=== PATIENT | female | born 1980 | race Caucasian/White ===

== ENCOUNTER 2017-04-05 10:13 | Emergency (ER) | payer SELFPAY ==
[~2017-04-05] VITALS: Ht 154.9 cm; Wt 47.8 kg
[~2017-04-05 10:13] MED LIST: ACET325T14 PO; DIAZ5TAB4 PO; DOCU-30 PO; IBUP-1222 PO
[2017-04-05] MEDS ORDERED: DIAZ5TAB4 PO (12:00)
[2017-04-05 12:53] VITALS: BP 98/53
== END 2017-04-05 12:57 | disposition home or self-care (01) ==
LOC: ED 11:53
DX: N93.8 Other specified abnormal uterine and vaginal bleeding (principal); F17.210 Nicotine dependence, cigarettes, uncomplicated
CPT/HCPCS: 36415; 76830; 81003; 84703; 85025; 99285

== ENCOUNTER 2018-12-31 14:28 | Emergency (ER) | payer MEDICAID ==
[~2018-12-31] VITALS: Ht 154.9 cm; Wt 53.0 kg
[~2018-12-31 14:28] MED LIST changes: +DOCU-131 PO; -DOCU-30 PO
[2018-12-31 15:17] LABS: BASOPHILS # (AUTO) 0.03 x10^3/uL (0-0.1); BASOPHILS % (AUTO) 1 % (0-1); EOSINOPHILS # (AUTO) 0.03 x10^3/uL (0-0.4); EOSINOPHILS % (AUTO) 1 % (1-7); LYMPHOCYTES # (AUTO) 1.72 x10^3/uL (1-3.4); LYMPHOCYTES % (AUTO) 36 % (22-44); MD NO; MEAN CORPUSCULAR HEMOGLOBIN 22.7 pg (27.0-34.8); MEAN CORPUSCULAR HGB CONC 30.9 g/dL (32.4-35.8); MEAN CORPUSCULAR VOLUME 73.4 fL (80-100); MEAN PLATELET VOLUME 7.8 fL (7.4-10.4); MONOCYTES # (AUTO) 0.22 x10^3/uL (0.2-0.8); MONOCYTES % (AUTO) 5 % (2-9); NEUTROPHILS # (AUTO) 2.72 x10^3/uL (1.8-6.8); NEUTROPHILS % (AUTO) 58 % (42-75); PLATELET COUNT 374 x10^3/uL (130-400); RED BLOOD COUNT 4.76 x10^6/uL (3.82-5.3); RED CELL DISTRIBUTION WIDTH 17.6 % (9.6-15.2)
[2018-12-31 15:27] LABS: ALBUMIN 3.7 g/dL (3.4-5.0); ANION GAP 5 mmol/L (5-15); CALCIUM 8.4 mg/dL (8.5-10.1); CHLORIDE 105 mmol/L (98-107); CREATININE 0.76 mg/dL (0.55-1.02)
--- NOTE | 2018-12-31 17:49 | NUR ---
TO ROOM FROM LOBBY. NAD.
--- NOTE | 2018-12-31 18:11 | NUR ---
FIRST CONTACT WITH PT. THIS RN IN TO ROOM. PT SITTING ON CHAIR. THIS RN ASKED "ARE YOU THE PATIENT?" PT STATES "YES. AND I'M NOT PUTTING THAT ON UNTIL I TALK TO A DOCTOR!" PT POINTED TO DHRUV SHE STATED THAT.
--- NOTE | 2018-12-31 18:15 | NUR ---
PT ARRIVED TO ROOM, PLACED ON MONITOR. PT REFUSING TO GET INTO GOWN OR IV STATING "I KNOW MY RIGHTS, EVERYONE HAS BEEN RUDE TODAY I'M NOT DOING ANYTHING UNTIL I GET MY RESULTS FROM MY DOCTOR. I CAN LEAVE AND DANIEL YOU FOR MALPLRACTICE BECAUS NOBODY HAS SEEN ME TODAY". RN ASKED PT FOR VITAL SIGNS AND PT AGREED, PT PLACED ON MONITOR. PT TEARFUL.
[2018-12-31] MEDS ORDERED: DIAZEPAM 5 MG TABLET ONE (18:56)
[2018-12-31] MEDS ORDERED: DIAZEPAM 5 MG TABLET PO ONE (19:00)
--- NOTE | 2018-12-31 20:06 | NUR ---
PT IS IN US NOW
--- NOTE | 2018-12-31 20:11 | NUR ---
PT CAME BACK FROM US
--- NOTE | 2018-12-31 20:32 | NUR ---
DR KNOWLES AT BED SIDE GIVEN THE RESULT OF SONO PT UNDERSTOOD PT WILL BE DC'D
--- NOTE | 2018-12-31 21:13 | NUR ---
GIVEN DC INSTRUCTION WITH PRESCRIPTION AND FOLLOW UP [employer] PT UNDERSTOOD PT UP AMBUALTED TO CHECK OUT WITH FAMILY
[2018-12-31 21:14] VITALS: BP 121/77
== END 2018-12-31 21:16 | disposition home or self-care (01) ==
LOC: ED 18:51
DX: N83.201 Unspecified ovarian cyst, right side (principal); D50.9 Iron deficiency anemia, unspecified; N92.0 Excessive and frequent menstruation with regular cycle; E87.6 Hypokalemia
CPT/HCPCS: 36415; 76830; 80048; 82040; 84703; 85025; 99284

== ENCOUNTER 2021-02-25 14:51 | Emergency (ER) | payer MEDICAID ==
[~2021-02-25] VITALS: Ht 154.9 cm; Wt 60.0 kg
[2021-02-25] MEDS ORDERED: SODIUM CHLORIDE 0.9% 1,000ML IVBOLUS ONE (15:00)
[2021-02-25] MEDS ORDERED: SODIUM CHLORIDE FLUSH 10ML SYR IVF ONE (15:00)
--- NOTE | 2021-02-25 15:30 | NUR ---
CC OF VB STARTING 20-30 MIN BEFORE ARRIVAL TO ER. PT IS AND IS CURRENTLY 13 WEEKS . PTS AT BEDSIDE AND STATES PT HAS GONE THROUGH 2 PADS THUS FAR. UPON ENTRY TO ROOM THERE IS FEW SMALL, LIGHT RED BLOOD SPOTS THROUGHOUT FLOOR, PT LAYING ON GURNEY WITH LEGS SPREAD OPEN AND CRYING HYSTERICALLY. UNABLE TO CALM PT DOWN, PT SCREAMING "I DONT WANT TO " AND DEMANDING ANSWERS. US AT BEDSIDE, PIV STARTED AND IV FLUIDS RUNNING.
[2021-02-25 15:35] LABS: BASOPHILS % (AUTO) 1 % (0-1); EOSINOPHILS % (AUTO) 0 % (1-7); LYMPHOCYTES % (AUTO) 12 % (22-44); MEAN CORPUSCULAR HEMOGLOBIN 28.9 pg (27.0-34.8); MEAN CORPUSCULAR HGB CONC 33.9 g/dL (32.4-35.8); MEAN PLATELET VOLUME 8.2 fL (7.4-10.4); MONOCYTES % (AUTO) 4 % (2-9); NEUTROPHILS % (AUTO) 83 % (42-75); PLATELET COUNT 251 x10^3/uL (130-400); RED BLOOD COUNT 4.68 x10^6/uL (3.82-5.3); RED CELL DISTRIBUTION WIDTH 17.1 % (9.6-15.2)
[2021-02-25 15:39] LABS: ALANINE AMINOTRANSFERASE 15 U/L (12-78); ALBUMIN 3.1 g/dL (3.4-5.0); ANION GAP 8 mmol/L (5-15); CALCIUM 8.7 mg/dL (8.5-10.1); CHLORIDE 108 mmol/L (98-107); CREATININE 0.55 mg/dL (0.55-1.02); MD NO
[2021-02-25 15:56] LABS: ALKALINE PHOSPHATASE 59 U/L (45-117); BILIRUBIN,TOTAL 0.1 mg/dL (0.2-1.0)
[2021-02-25] MEDS ORDERED: MORPHINE SULFATE 4 MG/ML, 1ML ONE (15:59)
[2021-02-25] MEDS ORDERED: ONDANSETRON 2MG/ML, 2ML ONE (15:59)
[2021-02-25] MEDS ORDERED: ONDANSETRON 2MG/ML, 2ML IVPush ONE (16:00)
[2021-02-25] MEDS ORDERED: MORPHINE SULFATE 4 MG/ML, 1ML IVPush PRN (16:00)
--- NOTE | 2021-02-25 17:06 | NUR ---
PT UP TO BSC, STILL CRYING AND ANXIOUS, ASKING MULTIPLE QUESTIONS ABOUT BLEEDING AND HOW TO MAKE IT STOP. NA REPLACED, SMALL NIDA RED BLOOD NOTED. AT BEDSIDE.
[2021-02-25 17:40] VITALS: BP 135/80
== END 2021-02-25 18:13 | disposition home or self-care (01) ==
LOC: ED 17:59
DX: O46.92 Antepartum hemorrhage, unspecified, second trimester (principal); R10.2 Pelvic and perineal pain; Z3A.16 16 weeks gestation of pregnancy
CPT/HCPCS: 36415; 76815; 80053; 84702; 85025; 86901; 96360; 99284; J7030